=== PATIENT | female | born 1955 | race Caucasian/White ===

== ENCOUNTER 2025-05-24 06:07 | Day surgery (SDC) | payer MEDICARE, BC, SELFPAY ==
[2025-05-24] VITALS (19 sets, daily range): BP systolic 95–178; BP diastolic 38–101; PULSE 62–81; RESP 14–23; TEMP 36.1–36.6; O2SAT 93–98; BMI 32.6
[2025-05-24] MEDS: LACTATED RINGERS 1000 ML 1,000 ML 100 ML IV ×2 (06:30→10:07)
[2025-05-24] MEDS: OXYCODONE (CR) 10 MG TAB.ER.12H PO (06:30)
[2025-05-24] MEDS: SODIUM CHLORIDE 0.9 % (FLUSH) 10 ML SYRINGE IVF (06:30)
[2025-05-24] MEDS: ACETAMINOPHEN 500 MG TABLET 1000 MG PO (06:31)
[2025-05-24] MEDS: MIDAZOLAM HCL 1 MG/ML inj IVP (07:16)
--- NOTE | 2025-05-24 07:24 | SUR.PREOP ---
TIME?OUT:?0716 PT/RN/MDA?VERIFICATION?OF?SURGICAL?SITE,?PROCEDURE,?AND?CONSENT OBTAINED?PRIOR?TO?INVASIVE?PROCEDURE.
[2025-05-24] MEDS: TRANEXAMIC ACID 100 MG/ML INJ 1000 MG IV (07:45)
--- NOTE | 2025-05-24 08:00 | SUR.OPER ---
PATIENT QUESTIONS ANSWERED SATISFACTORILY PREOPERATIVELY.? PATIENT BROUGHT TO OR #2 PER CART AFTER ADMINISTRATION OF A BLOCK.? Patient positioned supine on OR #2 bed.? The perioperative?team supported arms bilaterally on arm boards.? Final approval of positioning by surgeon.
--- NOTE | 2025-05-24 08:03 | SUR.OPER ---
DIVERSE RASH/OPEN SKIN LESIONS MOSTLY ON THE LATERAL SIDE OF THE RIGHT, BUT SPREAD THROUGHOUT PREP AREA.
--- NOTE | 2025-05-24 08:55 | W.PM.H&PU ---
History & Physical Update History & Physical Update H&P Reviewed and patient assessed: No changes noted
--- NOTE | 2025-05-24 08:55 | PM.ORPRC ---
Procedure Note Date of procedure: 05/24/25 Procedure: PREOPERATIVE DIAGNOSIS: 1. Right knee osteoarthritis, primary, severe POSTOPERATIVE DIAGNOSIS: 1. Right knee osteoarthritis, primary, severe PROCEDURE: 1. Right total knee arthroplasty SURGEON: Benigno Li MD. ACTUARY: TUAN Brandt - Of note, a skilled bilingual administrative assistant was critical for this case to aid in patient positioning, tissue retraction, limb manipulation/positioning, and closure. ANESTHESIA: Spinal anesthetic EBL: 100 mL IMPLANTS: DePuy J&J uncemented TKA - Attune PS femur size 4 narrow Size 2 tibia 5 mm poly spacer 35 mm Affixium patella TOURNIQUET: 39 minutes at 250 torr COMPLICATIONS: None evident INDICATIONS: The patient is a pleasant 70-year-old female who has experienced severe right knee pain and difficulty bearing weight. Workup included x-rays which revealed severe osteoarthrosis in the knee. Given the deformity, the dysfunction, and the pain, as well as the failure of nonoperative management, recommendation was made for surgery. FINDINGS: Full-thickness chondral loss diffusely throughout the medial compartment. To lesser degree lateral and patellofemoral compartment. Degenerative meniscus pathology medial greater than lateral. Moderate effusion upon entering the joint. DESCRIPTION OF PROCEDURE: Following a thorough discussion of risks, benefits, and alternatives consent was obtained and the right knee was marked. The patient was brought to the operating room and placed supine on the operating table. Induction of anesthesia was undertaken. 1 g IV Ancef and 1 g tranexamic acid was administered within 1 hr of incision preoperatively. Proper time-out was performed identifying proper patient, site, procedure. The operative extremity was prepped and draped in the appropriate sterile fashion using ChloraPrep after the patient was positioned supine with all bony prominences well padded. A longitudinal, anterior, midline skin incision was made starting approximately 3cm proximal to the superior pole of the patella and advanced distal to the tibial tubercle. A sub vastus approach was utilized . After mobilizing the patella, retropatellar fatpad was resected and the synovium in the suprapatellar pouch excised to visualize the anterior femoral cortex. Patellar prep began with an initial measurement/thickness of 22 mm. It was resected back to approximately 14 mm. The patella prep was completed with drilling and a trial placed. Femoral preparation was performed via an intramedullary guide. Step drill allowed access into the femoral canal. The distal cutting guide was placed with 5? of valgus and 11 mm cut on the distal femur due to a 5-7 degree flexion contracture. Femur was sized using a posterior referencing guide in 3? of external rotation. This found have a best fit with the sizing noted above. The 4 in 1 cutting block was then placed, and the distal femur shaped accordingly. The box cut was then created and the trial implant inserted to confirm appropriate fit. We turned our attention to the proximal tibia. Extramedullary guide was utilized for cutting with the goal of being 90 degree cut from the mechanical axis of the tibia in the varus/valgus plane utilizing tibial crest as the primary alignment. Initially a 2 mm resection was performed from the medial tibial plateau. An additional 2 mm of tibial resection was needed to achieve proper balance in both flexion & extension. Ultimately, balancing was achieved in both flexion and extension in both varus and valgus. The knee was able to achieve full extension comfortably. It was sized to be a best fit with as noted above. At this stage, trial implants were removed, the tibia and femoral and patellar components were opened and inserted. The real poly spacer was opened and inserted. A 3 min Betadine soak performed. Finally, a final irrigation round with normal saline was performed. Closure performed with 0 PDS and #0 Stratafix for the quad tendon/retinaculum. 2-0 Vicryl/Stratafix for the subcutaneous and 4-0 Monocryl for subcuticular closure. Dressings were applied and the patient was awoken from anesthesia after the tourniquet deflated and transferred the PACU in stable condition. A skilled bilingual administrative assistant was critical for this case to aid in patient positioning, tissue retraction, bone exposure, limb manipulation/positioning, patient safety, and closure. PLAN: 1. Weight bear as tolerated operative extremity. 2. 23 hr perioperative antibiotics. 3. Ice. 4. PT/OT consults for ambulation assistance/mobility education. 5. Social work consult for discharge planning. 6. DVT prophylaxis with at SCDs, and aspirin twice daily.
--- NOTE | 2025-05-24 09:29 | P.ANES_ITS ---
Anesthesia Charges Start Date/Time Anesthesia Start Date: 05/24/25 Anesthesia Start Time: 07:30 Stop Date/Time Anesthesia Stop Date: 05/24/25 Anesthesia Stop Time: 09:26 Coding CPT Codes CPT Codes: ANESTH KNEE ARTHROPLASTY - 58704 ([id number]) P2 - PATIENT W/MILD SYST DISEASE, QK - RESIDENCY COORDINATOR 2-4 CNCRNT ANES PROC, QX - HEAD CONCIERGE SVC W/ MD MED DIRECTION
--- NOTE | 2025-05-24 09:29 | W.ANESCHARGE ---
Anesthesia Charges Start Date/Time Anesthesia Start Date: 05/24/25 Anesthesia Start Time: 07:30 Stop Date/Time Anesthesia Stop Date: 05/24/25 Anesthesia Stop Time: 09:26 Coding CPT Codes CPT Codes: ANESTH KNEE ARTHROPLASTY - 85742 ([id number]) P2 - PATIENT W/MILD SYST DISEASE, QK - GUEST RELATION OFFICER 2-4 CNCRNT ANES PROC, QX - IMPLEMENTATION COORDINATOR SVC W/ MD MED DIRECTION
--- NOTE | 2025-05-24 09:33 | CRLHL7_ITS ---
For Patients: As a result of the Cures Act, medical imaging exams and procedure reports are released immediately into your electronic medical record. You may view this report before your referring provider. If you have questions, please contact your health care provider. Indication: Postop right TKA Technique: Two views of the right knee were acquired Comparison: May 18, 2025 Findings: As described below Impression: Findings of a right knee arthroplasty. Expected immediate postoperative appearance. No unexpected postoperative findings. Dictated by Kai Neves MD @ 05/24/2025 10:05:12 AM (Electronically Signed)
--- NOTE | 2025-05-24 09:35 | P.ANES_ITS ---
Anesthesia Charges Start Date/Time Anesthesia Start Date: 05/24/25 Anesthesia Start Time: 07:30 Stop Date/Time Anesthesia Stop Date: 05/24/25 Anesthesia Stop Time: 09:26 Coding CPT Codes CPT Codes: ANESTH KNEE ARTHROPLASTY - 11813 ([id number]) QK - CHIEF ESTIMATOR 2-4 CNCRNT ANES PROC, QX - BUSINESS INFORMATION CONSULTANT SVC W/ MD MED DIRECTION, P2 - PATIENT W/MILD SYST DISEASE
--- NOTE | 2025-05-24 09:35 | W.ANESCHARGE ---
Anesthesia Charges Start Date/Time Anesthesia Start Date: 05/24/25 Anesthesia Start Time: 07:30 Stop Date/Time Anesthesia Stop Date: 05/24/25 Anesthesia Stop Time: 09:26 Coding CPT Codes CPT Codes: ANESTH KNEE ARTHROPLASTY - 63087 ([id number]) QK - SPACE SCHEDULER 2-4 CNCRNT ANES PROC, QX - SAFETY INVESTIGATOR SVC W/ MD MED DIRECTION, P2 - PATIENT W/MILD SYST DISEASE
--- NOTE | 2025-05-24 09:36 | W.PM.NB ---
Nerve Block Nerve Block Time Seen by Provider: 07:19 Date Seen: 05/24/25 Type of block requested by surgeon for post-operative analgesia: adductor canal Side: right Time out performed: Yes Verification of patient name: Yes Verification of date of : Yes Site marking: site marked Name of person performing procedure: Yannick Continuous monitoring Was continuous monitoring of O2 sat, B/P, pharmacometrician, recorded every 15 minutes?: Yes Procedure Checklist: sterile prep, needles and gloves Ultrasound guided. Images saved: Yes Medications given in 5ml increments after negative aspiration: Marcaine %: 0.25 mL: 15 Needle gauge: 20 Precedex (mcg): 25 Patient tolerated procedure well: Yes Block Charges Block Charge (with Pro Fee): Femoral Nerve Use of Ultrasound Machine for Block: Yes- US Guidance/pain block
--- NOTE | 2025-05-24 09:36 | W.PM.NB ---
Nerve Block Nerve Block Time Seen by Provider: 07:19 Date Seen: 05/24/25 Type of block requested by surgeon for post-operative analgesia: geniculars Side: right Time out performed: Yes Verification of patient name: Yes Verification of date of : Yes Site marking: site marked Name of person performing procedure: Yannick Continuous monitoring Was continuous monitoring of O2 sat, B/P, surveillance system monitor, recorded every 15 minutes?: Yes Procedure Checklist: sterile prep, needles and gloves Ultrasound guided. Images saved: Yes Medications given in 5ml increments after negative aspiration: Marcaine %: 0.25 mL: 9 Needle gauge: 25 Patient tolerated procedure well: Yes Block Charges Block Charge (with Pro Fee): Genicular Nerve Block
--- NOTE | 2025-05-24 09:57 | SUR.PHASEI ---
patient met discharge criteria per anesthesia
[2025-05-24] MEDS: ACETAMINOPHEN 325 MG TABLET PO (12:00)
--- NOTE | 2025-05-24 13:55 | SUR.PHASEII ---
Patient returned from PT. PT reported patient passed PT. Patient then voided. Patient and family verbalized readiness to be discharged and understanding of discharge instructions and who to contact if she has questions.
== END 2025-05-24 13:52 | disposition home or self-care (01) ==
LOC: OR 06:08
PROVIDERS: PCP Family Medicine; Visit Provider Orthopaedic Surgery Sports Medicine
PROC: (CPT 27447; principal; 2025-05-24 07:30)
DX: M17.11 Unilateral primary osteoarthritis, right knee (principal); G89.18 Other acute postprocedural pain
CPT/HCPCS: 27447; 01402; 64447; 64454; 73560; 76942; 97110; 97116; 97161; A9270; C1776; J0665; J0690; J1100; J2250; J2371; J2405; J2704; J3010; J7120